=== PATIENT | female | born 1960 | race Caucasian/White ===

== ENCOUNTER 2020-12-17 07:59 | Outpatient (CLI) | payer BC | END 2020-12-17 08:00 | disposition home or self-care (01) | LOC: BICMAMMO 07:59 | PROVIDERS: ATTEND Student in an Organized Health Care Education/Training Program | DX: Z13.820 Encounter for screening for osteoporosis (principal); Z78.0 Asymptomatic menopausal state; M85.852 Other specified disorders of bone density and structure, left thigh; M85.851 Other specified disorders of bone density and structure, right thigh | CPT/HCPCS: 77063; 77067; 77080 ==

== ENCOUNTER 2022-04-21 11:10 | Outpatient (CLI) | payer BC | END 2022-04-21 11:11 | disposition home or self-care (01) | LOC: BICMAMMO 11:10 | PROVIDERS: ATTEND Student in an Organized Health Care Education/Training Program | DX: Z12.31 Encounter for screening mammogram for malignant neoplasm of breast (principal) | CPT/HCPCS: 77063; 77067 ==